=== PATIENT | male | born 1990 | race Two or more races ===

== ENCOUNTER 2017-11-15 16:46 | Emergency (ER) | payer OTHER, SELFPAY ==
[2017-11-15 16:47] VITALS: BP 152/84; PULSE 85; RESP 16; TEMP 36.6; O2SAT 96; BMI 34.7
--- NOTE | 2017-11-15 17:07 | ED.VISSUMM ---
- ER Visit Summary Date of Service: 11/15/17 Chief Complaint: Laceration History of Present Illness: The patient is a 27 M who cut his left third finger with a knife at work today. Tetanus is up-to-date. He has full range of motion with no paresthesias. Physical Examination: Vital signs are significant for blood pressure 152/84, otherwise unremarkable. Patient sitting upright in bed no acute distress. Exam is significant for left upper extremity examination which reveals a 2 cm laceration of the dorsal left hand at the PIP joint of the long finger. He has full range of motion of the digit with normal sensation distally. Normal cap refill is noted throughout. Test Results: [] Emergency Department Course and Treatment: Digital block of the left third finger was performed with 3 cc of 1% lidocaine. Wound was thoroughly cleansed and irrigated. Skin is closed with 7 simple interrupted sutures of 4-0 nylon. Dressing is applied and patient is to have sutures removed in 7 days. Treatment Plan: [] Disposition: Discharge Impression: Left third finger laceration status post suture This note was generated with [employer] dictation software. It may contain incorrect words, spelling, and punctuation that were not noted in review of the chart prior to signing ED Disposition - Plan for ED Patient: Chief Complaint: Laceration Referrals: Elliot Hills MD [Primary Care Provider] -
--- NOTE | 2017-11-15 17:40 | ED.DEP ---
ED Disposition - Plan for ED Patient: Disposition: Home or Assisted Living Chief Complaint: Laceration Instructions: ED Laceration Hand Referrals: [facility] [GROUP OF PHYSICIANS] - 7 Days for suture removal
[2017-11-15 18:01] VITALS: BP 132/70; PULSE 74; RESP 18; O2SAT 96
== END 2017-11-15 18:02 | disposition home or self-care (01) ==
LOC: ED 17:55
PROVIDERS: Emergency Provider Emergency Medicine; Family Provider Family Medicine; PCP Family Medicine
DX: S61.213A Laceration without foreign body of left middle finger without damage to nail, initial encounter (principal); K21.9 Gastro-esophageal reflux disease without esophagitis; F32.9 Major depressive disorder, single episode, unspecified; Z72.0 Tobacco use; Z79.899 Other long term (current) drug therapy; W26.0XXA Contact with knife, initial encounter; Y93.89 Activity, other specified; Y92.89 Other specified places as the place of occurrence of the external cause; Y99.0 Civilian activity done for income or pay
CPT/HCPCS: 12001; 99283

== ENCOUNTER 2017-12-17 14:02 | Emergency (ER) | payer OTHER, SELFPAY ==
[2017-12-17] VITALS (8 sets, daily range): BP systolic 138–146; BP diastolic 71–100; PULSE 57–90; RESP 14–18; TEMP 36.2; O2SAT 97–100; BMI 33.5
--- NOTE | 2017-12-17 14:08 | ED.RN ---
PT STATED HE WAS LEAVING PRIOR TO BEING TAKEN TO A ROOM. PT ENCOURAGED TO ALLOW US TO GET HIM TO A ROOM SO SOMEONE COULD COME TALK TO HIM AND HELP HIM. PT SITS CAM AND QUIETLY STATES HE IS SOOO ANGRY. WHEN TOLD PT HE COULD WALK BACK TO THE ROOM WITH THE VOLUNTEER WHEN THE PT TOOK A POCKET KNIFE WITH A APPROX 2 IN BLADE FOLDED AND 2 PILL BOTTLES FROM HIS JACKET POCKET, SET THEM ON TE COUNTER, STATED WE SUCK AT OUR JOB, AND HIT THEM ACROSS THE ROOM. PT THEN AMBULATED TO ROOM AND SECURITY WAS NOTIFIED.
--- NOTE | 2017-12-17 14:30 | ED.RN ---
Addendum entered by Emani Haney 12/17/17 14:53: TIME OCCURRED, [id number] Original Note: WALKED INTO PT'S ROOM. FOUND PT DRESSED, WITH PHONE CORD WRAPPED TIGHTLY AROUND HIS NECK. DID ALLOW THIS NURSE TO REMOVE CORD, AND STS I JUST WANT TO . OFFICER JOSE AT BEDSIDE AT THIS TIME, ASSISTING PT WITH GETTING INTO GOWN, AND EXPLAINING MENTAL HEALTH ER PROCEDURES WITH PT.
--- NOTE | 2017-12-17 14:30 | ED.RN ---
SPOKE WITH MOM, SHE WANTED TO GIVE BACKGROUND INFO ON PT. STS PT HAS HO MDD, ADD, BIPOLAR, AND CLOSED HEAD INJURY WITH SUDURAL/SUBARACHNOID BLEEDS, WHICH EXAC ADD AND DEPRESSION. ALSO STS HAS BEEN ADMITTED IN PAST A CHILD FOR S.I. WOULD LIKE THIS NURSE TO TELL PT THAT SHE LOVES HIM AND IS SUPPORTIVE OF HIM. WILL CONVEY THIS MESSAGE.
--- NOTE | 2017-12-17 15:02 | ED.VISSUMM ---
- ER Visit Summary Date of Service: 12/17/17 Chief Complaint: Suicidal ideation History of Present Illness: The patient is a [address] Hills. He has a long-standing history of depression. Reports that he has suicidal ideation that is long-standing. It worsened today. Reports that his girlfriend had a miscarriage and that he is very upset and has a plan to overdose. He was hospitalized for this when he was less than 20 years old, but had been doing fairly well otherwise. Physical Examination: Vitals: Stable. Afebrile. General: Well-nourished and well-developed. Head: Normocephalic atraumatic. Neck: Supple, no lymphadenopathy. No JVD. Nontender. Cardiovascular: Regular rate and rhythm. No murmurs. Respiratory: No respiratory distress. Clear to auscultation bilaterally. Abdominal: Soft, nontender, nondistended, normal bowel sounds. No guarding, rebound, or peritoneal signs. Back: Nontender. Extremities: Nontender, no edema. Skin: Normal color, no rash. Neurologic: Alert and oriented ?3. Cranial nerves II through XII are intact. Normal strength and sensation. Mental status exam: Patient appears their stated age. Good posture and grooming. Good eye contact. Normal rate, volume, and latency of speech. No homicidal ideation. No auditory or visual hallucinations. Flow of thought is logical. Insight and judgment is fair. Test Results: CBC is normal. Chem-7 is more for chloride of 108. LFTs marked for an ALT of 80. Tox screen shows MDMA. Alcohol is negative. Emergency Department Course and Treatment: While in the emergency department the patient wrapped a cord around his neck and is becoming increasingly agitated. He was given a dose of Vistaril p.o. Treatment Plan: Patient will have screening labs obtained and then be seen by the counseling center. In all likelihood he will require hospitalization. Disposition: Pending Impression: 1. Suicidal ideation. This note was generated with [employer] dictation software. It may contain incorrect words, spelling, and punctuation that were not noted in review of the chart prior to signing ED Disposition - Plan for ED Patient: Chief Complaint: Suicidal Referrals: Elliot Hills MD [Primary Care Provider] -
[2017-12-17 15:05] LABS: Absolute Lymphocyte Count 1.75 X10^3/ul (0.83-4.51); Absolute Neutrophil Count 3.1 X10^3/uL (2.0-7.7); Basophil# 0.01 X10^3/uL; Basophil% 0.2 % (0-1); Eosinophil# 0.15 X10^3/uL; Eosinophils% 2.7 % (0-5); Hematocrit 45.8 % (40-54); Hemoglobin 15.6 g/dl (13.0-16.5); Lymphocyte # 1.75 X10^3/ul (4.0); Lymphocyte % 31.9 % (19-41); Mean Corp Hgb Conc 34.1 g/gl (32-36); Mean Corpuscular Hgb 28.7 pg (27.0-32.0); Mean Corpuscular Volume 84.2 fL (80-94); Mean Platelet Vol. 9.2 fl (6.2-12.0); Monocyte# 0.47 X10^3/uL; Monocyte% 8.6 % (0-10); Neutrophil % 56.6 % (47-70); POSITIVE COUNT NO; POSITIVE DIFFERENTIAL NO; POSITIVE MORPHOLOGY NO; Platelet Count 236 K/mm3 (150-450); RBC Distribution Width CV 13.1 % (11.6-14.6); RBC Distribution Width SD 39.7 fl (35.1-43.9); Red Blood Count 5.44 M/mm3 (4.6-6.2); White Blood Count 5.5 K/mm3 (4.4-11.0)
[2017-12-17 15:19] LABS: Amphetamine Urine VISTA NEGATIVE (<1000 ng/mL); Barbiturate Urine VISTA NEGATIVE (< 200 ng/mL); Benzodiazepine Urine VISTA NEGATIVE (< 200 ng/mL); Cocaine Urine VISTA NEGATIVE (< 300 ng/mL); Ecstacy Urine VISTA POSITIVE (< 500 ng/mL); Methadone Urine VISTA NEGATIVE (< 300 ng/mL); PCP Urine VISTA NEGATIVE (< 25 ng/mL); THC Urine VISTA NEGATIVE (< 50 ng/mL); Vista UDS pH Range 5
[2017-12-17 15:20] LABS: ALB/GLOB Ratio 1.3 RATIO (0.9-2.4); AST(SGOT) 29 U/L (15-37); Alanine Aminotransfer ALT/SGPT 80 U/L (16-61); Albumin, Serum 4.5 g/dL (3.2-5.0); Alkaline Phosphatase 73 U/L (45-117); Anion Gap 7 (5-15); BUN 14 mg/dL (7-18); BUN/Creat Ratio 14.6 RATIO (10-20); Calcium,Total 8.7 mg/dL (8.5-10.1); Chloride 108 mmol/L (98-107); Creatinine, Serum 0.96 mg/dL (0.70-1.30); EST Glomerular Filtration Rate 101 mL/min (>60); Est Glom Filt Rate - Afr Amer 122 mL/min (>60); Estimated Creatinine Clearance 125.28 ml/min; Globulin 3.4 g/dL (2.2-4.2); Glucose 91 mg/dL (74-106); Potassium 4.1 mmol/L (3.5-5.1); Protein, Total 7.9 g/dL (6.4-8.2); Sodium Level 141 mmol/L (136-145)
[2017-12-17] MEDS: hydrOXYzine PAM 25 MG Capsule 50 MG PO (15:28)
[2017-12-17 15:43] LABS: Alcohol, Blood (Medical)-Serum < 3.0 mg/dL
[2017-12-17] MEDS: LORazepam 1 MG Tablet PO (22:17)
[2017-12-18] VITALS (11 sets, daily range): BP systolic 134–138; BP diastolic 78–79; PULSE 81–82; RESP 13–20; TEMP 36.7; O2SAT 98–99
--- NOTE | 2017-12-18 02:44 | ED.RN ---
PT INFORMATION SENT TO [facility]. [facility] ALMOST FULL, AND WILL NOT DECIDE ABOUT PT UNTIL MORNING. INFO ALSO SENT TO [facility] AGUIL[facility]. [facility] WILL NOT LOOK AT CHART UNTIL PT IS REFUSED BY [facility]. WILL CALL [facility] IN MORNING TO FOLLOW UP.
--- NOTE | 2017-12-18 06:36 | ED.RN ---
[facility] called they still have a bed at this time. They will present the case for admission to admission staff at this time
--- NOTE | 2017-12-18 06:46 | ED.RN ---
mother called and updated on plan of care at this time
--- NOTE | 2017-12-18 07:14 | ED.RN ---
PHARMACY CONTACTED FOR MEDICATIONS
--- NOTE | 2017-12-18 07:15 | ED.RN ---
[facility] called for pre authorization number for admission of patient
--- NOTE | 2017-12-18 07:18 | ED.RN ---
[facility] admission # [phone]
[2017-12-18] MEDS: Sertraline 50 MG Tablet PO (08:04)
[2017-12-18] MEDS: buPROPion (XL) 150 MG TABLET.XL PO (08:04)
--- NOTE | 2017-12-18 09:31 | ED.RN ---
STORMY ZEPEDA CHECKING STATUS WITH MAGGIE ADAN AND WILL CALL US BACK
--- NOTE | 2017-12-18 09:36 | ED.RN ---
PER RIDDHI EARLY; WE ARE WAITING ON INSURANCE AUTHORIZATION AND PER INSURANCE COMPANY IT COULD TAKE UP TO 24 HOURS
--- NOTE | 2017-12-18 11:15 | CM.ED ---
CM referred to assist with discharge process related to pre-authorization to admitting facility, [facility]. Call placed to patient's insurance carrier, [employer]. Lena, with [employer], states the patient has a pink slip as of 2114 on 12/17/17 and therefore may go directly to the admitting facility. The admitting facility must then provide clinicals while the patient is considered a 72 hour hold. I called [facility] [place] and verified that [facility] is a Tier 1 facility, [facility] Network. [facility] I notified [facility] of this process and [facility] states they will accept the patient now. Patient will be admitted to Unit [address]. Call placed to unit. [facility] states that they have the patient's bed available at this time. Report number given to Alta Jorgensen RN.
--- NOTE | 2017-12-18 11:53 | ED.RN ---
REPORT GIVEN TO EMS CREW. TWO BAGS OF PATIENT BELONGINGS SENT WITH EMS
== END 2017-12-18 12:24 ==
PROVIDERS: Emergency Medicine; Emergency Provider Emergency Medicine; Family Provider Family Medicine; PCP Family Medicine
DX: R45.851 Suicidal ideations (principal); F32.9 Major depressive disorder, single episode, unspecified; F90.9 Attention-deficit hyperactivity disorder, unspecified type; Z79.899 Other long term (current) drug therapy
CPT/HCPCS: 80053; 80307; 80320; 85025; 99285; G0480

== ENCOUNTER 2018-09-24 17:20 | Emergency (ER) | payer OTHER, SELFPAY ==
[2018-09-24 17:21] VITALS: BP 134/95; PULSE 84; RESP 16; TEMP 36.2; O2SAT 99; BMI 35.4
--- NOTE | 2018-09-24 17:31 | RAD_ITS ---
STUDY: X-RAY - LEFT HAND REASON FOR EXAM: Male, 28 years old. Left thumb injury TECHNIQUE: 3 view(s) of the hand. COMPARISON: None. FINDINGS: Normal radiocarpal articulation. Normal distal radioulnar joint. Normal visualized carpal bones. Normal carpal articulations Normal carpometacarpal articulation of the thumb. Normal second through fifth carpometacarpal joints. Normal metacarpi. Normal metacarpophalangeal joint of the thumb. Normal interphalangeal joint of the thumb. Normal proximal and distal phalanges of the thumb. Normal metacarpophalangeal joints of the second through fifth fingers. Normal proximal and distal interphalangeal joints of the second through fifth fingers. Normal phalanges of the second through fifth fingers. The soft tissue structures are unremarkable. RAD/Hand Min 3 Views IMPRESSION: Normal x-ray examination of the hand. Electronically Signed: Sarita Grover MD at 18:14 EST Tel , Service support ,
--- NOTE | 2018-09-24 17:32 | ED.VISSUMM ---
- ER Visit Summary Date of Service: 09/24/18 Chief Complaint: Left thumb injury History of Present Illness: The patient is a 28 M presents to the emergency department left thumb injury. The patient was in his normal state of health. Is right-hand dominant. He was at work. All he lifted the lid he did not latch. It fell and landed on his left thumb. He had immediate pain. He did describe some tingling. Since then, his pain is improved. He denies other injury. The patient is otherwise healthy. Physical Examination: Examination is relatively unremarkable. He does have a small contusion on the dorsum of the left thumb. Two-point discrimination is preserved. Flexion and extension are preserved. There is no laxity. There is no gamekeeper's thumb. His nail is intact. Test Results: [] Emergency Department Course and Treatment: There is no gross laxity of the thumb. Plain films were obtained. There is no evidence of acute fracture. I do feel the symptoms are secondary to contusion. This was a work-related injury. Appropriate paperwork was filled out. The patient will follow-up with [facility]. He will continue anti-inflammatories and ice. He will be discharged home. Treatment Plan: [] Disposition: Discharge Impression: Left thumb contusion This note was generated with [employer] dictation software. It may contain incorrect words, spelling, and punctuation that were not noted in review of the chart prior to signing ED Disposition - Plan for ED Patient: Chief Complaint: Upper Extremity Injury Instructions: ED Contusion Upper Ext Referrals: [facility] [GROUP OF PHYSICIANS] -
== END 2018-09-24 18:43 | disposition home or self-care (01) ==
LOC: ED 18:40
PROVIDERS: Emergency Provider Emergency Medicine; Family Provider Family Medicine; PCP Family Medicine
DX: S60.012A Contusion of left thumb without damage to nail, initial encounter (principal); Z72.0 Tobacco use; Z79.899 Other long term (current) drug therapy; W20.8XXA Other cause of strike by thrown, projected or falling object, initial encounter; Y93.89 Activity, other specified; Y92.89 Other specified places as the place of occurrence of the external cause; Y99.0 Civilian activity done for income or pay
CPT/HCPCS: 73130; 99282

== ENCOUNTER 2022-07-06 11:13 | Emergency (ER) | payer OTHER, SELFPAY ==
[2022-07-06 11:14] VITALS: BP 165/99; PULSE 90; RESP 18; TEMP 35.7; O2SAT 99; BMI 33.5
--- NOTE | 2022-07-06 11:55 | ED.VIS.LOWEX ---
HPI History of Present Illness Chief Complaint: Lower Extremity Injury Narrative Narrative: 32-year-old male with right ankle pain. He states this is a chronic issue. He has been seen by Dr. Barbosa for this. It was recommended that he do physical therapy which the patient stated he did and did not have any improvement in the pain. Today he states he was at work and having trouble walking. 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 He states he cannot cover the compression boot because of the risk of fall from slipping. He states this possibly can be moved to a different apartment and make less money. He states that podiatry did state that his ankle was unstable and only recommended physical therapy and no surgery. He denies any new trauma. [facility] Medical History Back pain Diarrhea Hx Brain Hemorrhage Shoulder pain SOB (shortness of breath) Home Medications sertraline 50 mg tablet 50 mg PO DAILY 11/15/17 [History Last Taken Unknown] cyclobenzaprine 10 mg tablet 10 mg PO PRN PRN Pain 7 days ##20 11/23/17 [History Last Taken Unknown] bupropion HCl 150 mg 24 hr tablet, extended release (Wellbutrin XL) 150 mg PO DAILY 12/17/17 [History Last Taken Unknown] Allergy/AdvReac Type Severity Reaction Status Date / Time Sulfa (Sulfonamide Allergy Unknown Verified 07/06/22 11:16 Antibiotics) Social History Smoking Status: Never smoker alcohol intake: never ROS ROS ED Constitutional Constitutional ED: Denies chills, fever(s) or sweats Eyes Eyes: Denies blurry vision or change in vision ENT ENT ED: Denies ear pain or sore throat Cardiovascular Cardiovascular: Denies chest pain, palpitations or racing heartbeat Respiratory/Chest Respiratory/Chest: Denies cough, dyspnea or sputum Gastrointestinal Gastrointestinal: Denies abdominal pain, constipation, diarrhea, nausea or vomiting Genitourinary Genitourinary ED: Denies dysuria, hematuria or urinary frequency Musculoskeletal Musculoskeletal: Reports other Details: Right ankle and foot pain ; Denies arthralgias, myalgias or neck pain Integumentary Denies abscess, Abrasions or rash Neurologic Neurologic: Denies headache(s), paresthesias or weakness Psychiatric Psychiatric: Denies anxiety, depression, suicidal ideation or suicidal thoughts Endocrine Endocrinology: Denies polydipsia or polyuria EXAM Physical Exam Const Vital Signs: 07/06/22 11:14 Temperature 96.2 F L Temperature Source Temporal Pulse Rate 90 Respiratory Rate 18 Blood Pressure 165/99 H Blood Pressure Mean 121 Pulse Ox 99 Oxygen Delivery Method Room Air Positive well nourished General Appearance ED: NAD HEENT Reports moist mucous membranes normocephalic Eyes PERRL Neck full ROM Chest Wall inspection of chest normal Resp normal respiratory effort and no retractions Cardio regular rate and regular rhythm Extremity Extremity Narrative: Mild tenderness to palpation inferior to the right lateral malleolus. No bony abnormalities. Flexion extension maintained. Achilles tendon intact. Calf soft nontender. No cords palpated. Foot nontender to palpation otherwise. Neurovascular intact brisk cap refill to all 5 toes. Neuro oriented x3 and CN's II-XII intact bilaterally Motor Exam: strength 5/5 throughout MDM MDM MDM Narrative Medical decision making narrative: Patient presenting with chronic pain to the foot. No new injury. No obvious deformities. Neurovascular intact. No bony abnormalities. Discussed with the patient at length that he should be wearing his compression boot. He should also follow-up with Dr. Barbosa for reevaluation since physical therapy is not working. I explained to him that narcotics were not appropriate for his pain and he is to still continue Tylenol and ibuprofen while using his compression boot. He hopefully he can make arrangements that his work will allow him to cover this and stay where he is at in the [facility] department. Impression: 1. Right ankle pain Lab Data Attestation: I reviewed the patient's lab results. Discharge Plan Triage Chief Complaint: Lower Extremity Injury ED Provider: Geovanni Zabala Dx/Rx/DC Orders Prescriptions: No Action cyclobenzaprine 10 mg tablet 10 mg PO PRN PRN (Reason: Pain) 7 Days Qty: 20 Label Comments: sertraline 50 MG tablet 50 mg PO DAILY bupropion HCl [Wellbutrin XL] 150 MG Tab.Er.24h 150 mg PO DAILY Primary Care Provider: lEliot Hills Referrals: Elliot Hills MD [Primary Care Provider] -
== END 2022-07-06 12:24 | disposition home or self-care (01) ==
PROVIDERS: Emergency Provider Student in an Organized Health Care Education/Training Program; PCP Family Medicine; Visit Provider Student in an Organized Health Care Education/Training Program
DX: M25.571 Pain in right ankle and joints of right foot (principal)
CPT/HCPCS: 99282

== ENCOUNTER 2023-05-28 09:16 | Outpatient (RCR) | payer OTHER, SELFPAY ==
--- NOTE | 2023-05-28 11:23 | HP.PTEVAL_ITS ---
Patient's Visit Information Visit Information Visit Information: CHARLINE MACIEL IV is a 33 year old M referred to Physical Therapy by Dr. Chaz Macias DPM with a diagnosis of RIGHT POSTERIOR TIBIAL TENDONITIS ,RIGHT HEEL PAIN. Date of Evaluation: 05/28/23 Physical Therapist: Delmar Pelaez, PT, Cert MDT, OCS Visit Plan Frequency: 3x /Week Duration: 6 Weeks Plan: PATIENT IS HIGHLY IRRITABLE PT INTERVTION STRETCHING CALF ,MANUAL THERAPY STM CALF /SCAR ,US/ESTIM/CP FOR PAIN ,GRADED ROM/STRENGTHENING KEO Subjective Subjective: This 33 y/o male presents to physical therapy with right posterior tibial tendonitis and right heel pain. Patient initially had surgery lateral foot by another Dr. Jul 2022. Patient continue to have pain even after PT thus seen Dr Macias ~ 2months. Patient was diagnosed with with posterior tibial tendonitis ,but needs PT prior to MRI. Patient had x-rays -. Patient pain located medial arch to 1st ray. Aggravating factors walking ,standing and job demands. Patient has pes planus and has orthotics. Denies parestehesia/tingling-. Patient pain affects sleeping . Patient condition affects was worsen by multiple ankle injuries twisting ankle. Patient was given anti-inflammatory did not help but prednisone helped. Patient condition affects QOL and job . Patient goals to decrease pain. SOCAIL: VOCATION: Guillaume Pain Left Foot: Pain Intensity (Out of 10): 5 Pain Intensity Range: 10 Objective Objective: POSTURE:( frontal plane )pes planus- PALAPTION: TTP posterior tibial tendon ,G-S tender mid NEURO: denies paresthesia/tingling - GAIT: antalgic gait right side decrease heel strike push off AROM: dorsiflexion 0 degrees ,plantar flexion 65 degrees , eversion 5 degrees , inversion 4 degrees pain PROPRIOCEPTION: poor MMT: ( peak force) anterior tibialis 23,7 ,G-S 23.8 ,posterior tibialis 5.7 ,peroneus 8.9 EDEMA: PTT Balance/Special Test Scores Lower Extremity Functional Score: 36 Goals Goal 1:: I with HEP foot Goal Time Frame: 4-6 Weeks Goal 2:: Patient to improve gait pattern with less antalgic gait 80% of the time Goal Time Frame: 4-6 Weeks Goal 3:: Patient improve AROM ankle all planes by 5-10 degrees to improve gait Goal Time Frame: 4-6 Weeks Goal 4:: Patient to improve peak force of ankle stabilizer's by 5-10 # strength to improve gait Goal Time Frame: 4-6 Weeks Goal 5:: Patient to improve LFES score by 5-10 points to improve QOL and function with gait Goal Time Frame: 4-6 Weeks Goal 6:: Patient to demonstrate 50% improvement with decrease pain and improve gait Goal Time Frame: 4-6 Weeks Rehabilitation Potential Physical Therapy Diagnosis: Patient had surgery Jul 2022 did not help ,thus pas pain posterior tibial tendon with poor ROM inversion ,weakness ,decrease gait ,impairs housework task and job demands thus benefit from skilled PT Anticipated Interventions Patient/Client Instruction: Educate patient on: Condition and Plan of Care For the Purpose of:: To decrease pain, To increase ROM, To improve muscle performance and motor function, To improve ability to perform ADL's, To increase tolerance to activity/condition/position, To improve ability of physical actions for home/community/work/leisure, To improve gait and locomotor functions, To improve health of tissue, To decrease soft tissue restriction, To increase flexibility/ROM, To improve endurance and To assume or resume ADL's Therapeutic Exercise to Include: Strength training, Endurance training, Balance training, Flexibilty training, Passive ROM and Active ROM Comment: RIGHT ANKLE For the Purpose of:: To decrease pain, To increase ROM, To increase oxygenation perfusion, To increase tolerance to activity/condition/position, To improve health of tissue, To decrease soft tissue restriction, To increase flexibility/ROM and To reduce risk of recurrence Manual Therapy Techniques to Include: Massage, Mobilization and Functional dry needling Comment: CALF .FOOT For the Purpose of:: To decrease pain, To decrease swelling/inflammation, To increase ROM, To improve nutrient delivery to tissue, To increase oxygenation perfusion, To improve health of tissue and To decrease soft tissue restriction TENS: Yes IF ES: Yes Cryotherapy (ice pack, ice massage): Yes Thermo therapy (hot pack): Yes Ultrasound (thermal/non thermal): Yes For the Purpose of:: To decrease pain, To decrease swelling/inflammation, To improve nutrient delivery to tissue, To increase oxygenation perfusion, To improve health of tissue and To decrease soft tissue restriction Text: Thank you for the opportunity to evaluate your patient. For Medicare and Medicare HMO plans, please review the plan of care and approve it. It will need to be FAXED BACK to us at [phone] for Medicare purposes. For Medicare only, by signing this I certify the plan of care. Please let me know if there are questions or concerns regarding this plan of care. Physician Signature: Date:
== END 2023-05-28 19:00 | disposition home or self-care (01) ==
LOC: PT 09:16
PROVIDERS: PCP Family Medicine; Visit Provider Student in an Organized Health Care Education/Training Program
DX: M76.821 Posterior tibial tendinitis, right leg (principal)
CPT/HCPCS: 97035; 97162

== ENCOUNTER → 2023-08-19 | Outpatient (CLI) | payer OTHER, SELFPAY ==
--- NOTE | 2023-08-19 14:09 | NEURO ---
NCS and/or EMG Patient Report Ordering Doctor: Chaz Macias DATE OF SERVICE: 08/19/23 Elliot presents for electrodiagnostic testing of the right lower limb. He declined any testing of the left lower limb, stating his symptoms are primarily on the right side. Electrodiagnostic findings: Right peroneal motor nerve demonstrates normal distal latency, amplitude and conduction velocity. Normal right tibial motor response. Normal right tibial and peroneal F?waves. Sensory responses are within normal limits. Needle EMG testing was performed in the lower limbs. All muscles tested showed no evidence of denervation with normal motor unit action potentials. Electrodiagnostic assessment: This is a normal electrodiagnostic study of the right lower limb. There is no evidence for peripheral neuropathy, including tarsal tunnel syndrome. Multi Select Codes Neurology Neurology Interp Codes: 10648-06 Musc test done w/n test comp (interp) and 24086-16 Nrv cndj test 7-8 studies (interp)
== END | disposition home or self-care (01) ==
LOC: MRI 06:55 → PSN 06:58
PROVIDERS: PCP Family Medicine; Referring Provider Student in an Organized Health Care Education/Training Program; Visit Provider Student in an Organized Health Care Education/Training Program
DX: M76.821 Posterior tibial tendinitis, right leg (principal); M76.822 Posterior tibial tendinitis, left leg
CPT/HCPCS: 95886; 95910

== ENCOUNTER 2024-08-08 07:46 | Emergency (ER) | payer OTHER, SELFPAY ==
[2024-08-08 07:47] VITALS: BP 162/107; PULSE 79; RESP 18; TEMP 37.1; O2SAT 99; BMI 37.0
--- NOTE | 2024-08-08 08:19 | CT_ITS ---
STUDY: CT ABDOMEN AND PELVIS WITH CONTRAST REASON FOR EXAM: Male, 34 years old. RLQ abd pain RADIATION DOSAGE (If Supplied By Facility): CTDIvol = ( 17.07 ) mGy, DLP = ( 1343.02 ) mGycm TECHNIQUE: Transaxial images were obtained from the dome of the diaphragm to the symphysis pubis without oral contrast. IV 100mL Isovue-300 was administered. Sagittal and coronal images were reconstructed. Individualized dose optimization techniques were used for this CT. COMPARISON: None. FINDINGS: The visualized lung bases are unremarkable. The visualized portions of the heart are within normal limits. There is decreased attenuation of the liver consistent with steatosis. Normal gallbladder and extrahepatic biliary system. Normal spleen. Normal pancreas. Normal bilateral adrenal glands. Normal right kidney. Normal left kidney. Normal visualized stomach. Normal small intestine. Normal colon. The appendix is visualized and appears normal. Enlarged lymph nodes are seen within the mesentery in the right lower quadrant suggestive of mesenteric lymphadenitis. Normal abdominal aorta. Normal inferior vena cava. Normal retroperitoneum. Normal urinary bladder. Normal abdominal wall. Normal osseous structures. CT/Abdomen/Pelvis W IV Cont ONLY IMPRESSION: Enlarged lymph nodes are seen within the mesenteric fat in the right lower quadrant suggestive of mesenteric adenitis. Electronically Signed: Maximiliano Frost MD at 9:25 EST ,
--- NOTE | 2024-08-08 08:20 | EDS_ITS ---
HPI HPI - GI History of Present Illness Chief Complaint: Abd Pain Informant: patient Narrative Narrative: Worsening pain today. Had mild discomfort in scrotum last month and have today pain went up into his lower abdomen. No nausea. No urinary symptoms. No scrotal trauma. No fevers. Normal bowel movements. No hernias. 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 Does lift heavy objects. Prior to month and a half ago no issues in the past. No past med history. Allergies to sulfa. [facility] Medical History Hx Brain Hemorrhage Back pain Diarrhea Shoulder pain SOB (shortness of breath) Home Medications ?Medication ?Instructions ?Recorded ?Last Taken ?Type sertraline 50 mg tablet 50 mg PO DAILY 11/15/17 Unknown History cyclobenzaprine 10 mg tablet 10 mg PO PRN PRN Pain 7 days ##20 11/23/17 Unknown History bupropion HCl 150 mg 24 hr tablet, 150 mg PO DAILY 12/17/17 Unknown History extended release (Wellbutrin XL) Allergy/AdvReac Type Severity Reaction Status Date / Time Sulfa (Sulfonamide Allergy Unknown Verified 08/08/24 07:47 Antibiotics) Social History Smoking Status: Never smoker alcohol intake: never ROS ROS ED Constitutional Constitutional ED: Denies chills, fever(s) or sweats Eyes Eyes: Denies change in vision ENT ENT ED: Denies dysphagia or sore throat Cardiovascular Cardiovascular: Denies chest pain, leg edema, palpitations or racing heartbeat Respiratory/Chest Respiratory/Chest: Denies cough, dyspnea or dyspnea on exertion Gastrointestinal Gastrointestinal: Reports abdominal pain; Denies diarrhea, nausea or vomiting Genitourinary Genitourinary ED: Reports other Details: Pain right scrotal ; Denies dysuria, hematuria or urinary frequency Musculoskeletal Musculoskeletal: Denies back pain, extremity pain or neck pain Integumentary Denies rash or wounds Neurologic Neurologic: Denies headache(s), paresthesias or weakness EXAM Physical Exam Const Vital Signs: 08/08/24 07:47 Temperature 98.7 F Temperature Source Oral Pulse Rate 79 Respiratory Rate 18 Blood Pressure 162/107 H Blood Pressure Mean 125 Pulse Ox 99 Oxygen Delivery Method Room Air Positive well nourished and well developed General Appearance ED: well developed and NAD HEENT Reports moist mucous membranes normocephalic and atraumatic Eyes EOMs intact bilaterally and conjunctivae normal General Eye ED: Yes normal appearance of both eyes Neck no lymphadenopathy and supple General: Negative for tenderness Chest Wall Chest: Negative for tenderness Resp normal respiratory effort and normal air movement Effort and Inspection: symmetric chest movement; Negative for respiratory distress Cardio regular rate, regular rhythm and no murmurs Peripheral Pulses: pulses 2+ throughout GI normal to inspection, nondistended, normoactive bowel sounds GI Narrative: Mild pain right lower quadrant. Palpation: Negative for guarding or rebound tenderness present Narrative: No hernias palpated normal scrotal no tenderness no swelling no epididymal tenderness. No lesions noted. Back/Spine no CVA tenderness and no thoracic nor lumbar tenderness Extremity normal to inspection General Extremety ED: Negative for edema or tenderness General Extremity: Negative for edema Neuro oriented x3 and no sensory deficits noted Sensorium / Orientation: awake and alert Skin no rashes or lesions noted and no wounds MDM MDM MDM Narrative Medical decision making narrative: Interventions / MDM: Differential diagnosis: Abdominal pain, mesenteric adenitis Diagnosis considered but do not suspect: Appendicitis however CT negative. No clinical inguinal hernia. No clinical epididymitis. No clinical scrotal torsion. My EKG interpretation: N/A Imaging independently reviewed and interpreted by myself: CT abdomen pelvis: Normal appendix. Right lower quadrant mesenteric adenitis reported by radiology. External documents reviewed: N/A Test considered but not ordered:N/A ED course: Nontoxic pain in the scrotum now pain in his right lower quadrant leads to today. No guarding or rebound. There is no hernia on palpation. No scrotal torsion no epididymitis. Labs were ordered CT scan for further evaluation. Laboratory work stable, CT scan normal appendix with mesenteric adenitis right lower quadrant. Discussed with patient using continue NSAIDs as needed. He is given follow-up with urology as an outpatient Due to scrotal pain. Return precautions. All questions were answered. Re-evaluation: stable Disposition discussed with patient/family/significant other: Patient Case discussed with consulting clinician: N/A This note was generated with [employer] dictation software. It may contain incorrect words, spelling, and punctuation that were not noted in checking the note before signing. Radiography Diagnostic Testing: Clinical Impression(s) from Imaging Studies Abdomen/Pelvis CT 08/08/24 08:19 IMPRESSION: Enlarged lymph nodes are seen within the mesenteric fat in the right lower quadrant suggestive of mesenteric adenitis. Electronically Signed: Maximiliano Frost MD at 9:25 EST , Discharge Plan Triage Chief Complaint: Abd Pain ED Provider: Dudley George Dx/Rx/DC Orders Clinical Impression: Mesenteric adenitis, Abdominal pain, Scrotal pain Instructions: ED Adenitis, Mesenteric Prescriptions: No Action cyclobenzaprine 10 mg tablet 10 mg PO PRN PRN (Reason: Pain) 7 Days Qty: 20 Patient Comments: sertraline 50 MG tablet 50 mg PO DAILY bupropion HCl [Wellbutrin XL] 150 MG tablet extended release 24 hr 150 mg PO DAILY Primary Care Provider: [place] Referrals: Bhargav Burgos MD [Med Staff - Active Staff] - 1-2 Weeks [place] MD [Primary Care Provider] - 1 Week if not improving Activity Restrictions/Additional Instructions: CT scan with normal appendix. Localized mesenteric adenitis right lower quadrant. Use ibuprofen 600 every 6 hours as needed. Labs normal white count normal kidney function urine without infection or blood. You have no clinical hernia on palpation no clinical epididymitis on exam. If you have persistent symptoms, follow-up with urology. Urine screening for chlamydia and gonorrhea sent and pending. Print Language: [place] Disposition Disposition: Home, Self Care Discharge Date/Time: 08/08/24 10:39
[2024-08-08 08:36] LABS: Absolute Lymphocyte Count 1.32 X10^3/uL (0.83-4.51); Absolute Neutrophil Count 4.8 X10^3/uL (2.0-7.7); Basophil# 0.03 X10^3/uL; Basophil% 0.4 % (0-1); Eosinophil# 0.15 X10^3/uL; Eosinophils% 2.2 % (0-5); Hematocrit 42.9 % (40-54); Hemoglobin 14.7 g/dL (13.0-16.5); Lymphocyte # 1.32 X10^3/ul (0.83-4.51); Lymphocyte % 19.2 % (19-41); Mean Corp Hgb Conc 34.3 g/dL (32-36); Mean Corpuscular Hgb 28.4 pg (27.0-32.0); Mean Platelet Vol. 9.7 fl (6.2-12.0); Monocyte# 0.61 X10^3/uL; Monocyte% 8.9 % (0-10); NRBC Flagged by Analyzer 0 % (0-5); Neutrophil # 4.75 X10^3/uL (2.7-7.7); Neutrophil % 69.2 % (47-70); Platelet Count 265 K/mm3 (150-450); RBC Distribution Width CV 12.4 % (11.6-14.6); RBC Distribution Width SD 37.7 fl (35.1-43.9); Red Blood Count 5.17 M/mm3 (4.6-6.2); White Blood Count 6.9 K/mm3 (4.4-11.0)
[2024-08-08] MEDS: Ketorolac 15 MG/ML Vial IV (08:45)
[2024-08-08 08:58] LABS: Anion Gap 7 (5-15); BUN 13 mg/dL (7-18); BUN/Creat Ratio 12.4 RATIO (10-20); Calcium,Total 9.2 mg/dL (8.5-10.1); Chloride 109 mmol/L (98-107); Creatinine, Serum 1.05 mg/dL (0.70-1.30); EST Glomerular Filtration Rate 87 mL/min (>60); Est Glom Filt Rate - Afr Amer 105 mL/min (>60); Estimated Creatinine Clearance 133.33 ml/min; Glucose 126 mg/dL (74-106); Potassium 3.5 mmol/L (3.5-5.1); Sodium Level 140 mmol/L (136-145)
[2024-08-08 08:59] LABS: Mucous, Urine 0 SEEN /hpf (<or=2+); Red Blood Cells-Urine 0 SEEN /hpf (0-5); Squamous Epithelial Cells - UA 0 SEEN /hpf (0-5); White Blood Cells 0 SEEN /hpf (0-5)
[2024-08-08 09:12] LABS: Color, Urine Yellow (Yellow); Glucose, Dipstick Normal (Normal); Ketone-Dipstick Negative (Negative); Leukocyte Esterase-Dipstick Negative /ul (Negative); Nitrite-Dipstick Negative (Negative); Occult Blood-Urine Negative /ul (Negative); Protein-Dipstick Negative (Negative); Urine Bilirubin Dipstick Negative (Negative); Urine Clarity Clear (Clear); Urine Urobilinogen Normal (Normal)
[2024-08-08 09:21] LABS: Bacteria 1+ /hpf (None Seen)
[2024-08-08 09:46] VITALS: BP 160/107; PULSE 69; RESP 16; O2SAT 99
[2024-08-08 10:28] VITALS: BP 161/104; PULSE 68; RESP 16; TEMP 36.8; O2SAT 99
== END 2024-08-08 10:39 | disposition home or self-care (01) ==
PROVIDERS: Emergency Provider Emergency Medicine; PCP Family Medicine; Visit Provider Emergency Medicine
DX: I88.0 Nonspecific mesenteric lymphadenitis (principal); N50.82 Scrotal pain; Z88.2 Allergy status to sulfonamides
CPT/HCPCS: 74177; 80048; 81001; 85025; 87491; 87591; 96374; 99283; Q9967; A4216